=== PATIENT | female | born 1995 | race Caucasian/White ===

== ENCOUNTER 2018-09-04 22:38 | Emergency (ER) | payer BC ==
[~2018-09-04] VITALS: Ht 160 cm; Wt 56.8 kg
[~2018-09-04 22:38] MED LIST: ANTIBIOTIC; BIRTHCONTROL; CEFTIN500 MG PO; NO HOME MEDICATIONS; PYRIDIUM200 M1 PO; TRINESSA1 TAB PO; VIGAMOX 0.5% 3 M3 ML OU; ZOFRAN 4MG T4 MG/TAB PO
[2018-09-04 23:17] LABS: BASO % 0.6 % (0.0-2.0); EOS # 0.1 (0.0-0.7); EOS % 1.4 % (0-4.0); GRAN # 4.7 (1.4-6.5); HEMOGLOBIN 11.1 g/dl (12.5-16.0); LYMPH # 1.4 (1.2-3.4); MEAN CELL VOLUME 85 fl (80.0-100.0); MEAN CORPUSCULAR HEMOGLOBIN 29 pg (27.0-31.0); MEAN CORPUSCULAR HGB CONC 33 g/dl (33.0-37.0); MEAN PLATELET VOLUME 10.1 fl (7.4-10.4); MONO # 0.9 (0.1-0.6); MONO % 12.6 % (1.7-9.3); PLATELET COUNT 200 K/mm3 (130-400); RED BLOOD COUNT 3.89 M/mm3 (4.10-5.30); REDCELL DISTRIBUTION WIDTH-CV 13.8 % (11.5-14.5)
[2018-09-04 23:18] LABS: HEMATOCRIT 33.2 % (37.0-47.0)
[2018-09-04 23:27] LABS: ALBUMIN 3.6 gm/dL (3.5-5.0); BILIRUBIN,TOTAL 0.9 mg/dL (0.0-1.0); CALCIUM 8.8 mg/dL (8.4-10.2); CREATININE, serum 0.55 mg/dL (0.52-1.25); POTASSIUM 3.1 mmol/L (3.4-5.0); TOTAL PROTEIN 6.5 gm/dL (6.4-8.2)
[2018-09-04 23:42] LABS: COLLECTION METHOD CLEAN CATCH
[2018-09-04 23:52] LABS: MUCOUS Present /lpf; PH 5 (5-8); SQUAMOUS EPITHELIAL 0-2 /hpf; URINE APPEARANCE Clear; URINE BACTERIA Rare /hpf; URINE BILIRUBIN Negative (NEGATIVE); URINE BLOOD Negative (NEGATIVE); URINE COLOR Yellow; URINE GLUCOSE Negative (NEGATIVE); URINE KETONE Negative (NEGATIVE); URINE LEUKOCYTE ESTERASE Trace (NEGATIVE); URINE NITRATE Negative (NEGATIVE); URINE PROTEIN(semi-quant) Negative (NEGATIVE); URINE RBC 0-2 /hpf
[2018-09-05 02:21] VITALS: BP 114/59; PULSE 104; TEMP 99.5
== END 2018-09-05 02:25 | disposition home or self-care (01) ==
LOC: COL.ER 22:38
PROVIDERS: Emergency Medicine
DX: E87.6 Hypokalemia (principal); R10.9 Unspecified abdominal pain; Z98.890 Other specified postprocedural states; Z87.59 Personal history of other complications of pregnancy, childbirth and the puerperium
CPT/HCPCS: J7030

== ENCOUNTER 2020-04-02 06:05 | Inpatient (IN) | payer OTHER, MEDICAID ==
[2020-04-02] VITALS (12 sets, daily range): BP systolic 116–131; BP diastolic 59–78; PULSE 78–107; TEMP 98–98.9
[~2020-04-02] VITALS: Ht 160 cm; Wt 65.9 kg
--- NOTE | 2020-04-02 06:10 | NUR ---
PATIENT TO LR 4 AT 0610. PATIENT COMPLAINS OF CONTRACTIONS, LEAKING OF FLUID, BUT NO BLEEDING,CHANGED INTO GOWN SVE PREFORMED. PATIENT SCREMING THROUGH CONTRACTIONS. ON EFM. IV STARTED. OSCAR CALLED DR PRINGLE TO COME TO LABOR AND DELIVERY. PATIENT STATES SHE NEEDS TO PUSH, PATIENT LAYING ON LEFT SIDE BREATHING AND YELLING THROUGH CONTRACTIONS. PEN G INFUSED AT THIS TIME WELL LACTATED RINGERS. DR PRINGLE HERE AT 0629- PATIENT COMPLETE, PATIENT BEGAN PUSHING. DR PRINGLE RUPTURED FOREBAG. HEART RATE RANING FROM 110-80S WHILE PUSHING. BY DR PRINGLE AT 0641. TO MOTHERS CHEST IN CARE OF NICOLASA Moise RN. DOCTOR CUT CORD. SKIN TO SKIN. PLACENTA SPON DELIVERED. OXYTOCIN AT 333 MLS/ HR. FUNDAL MASSAGE PROVIDED. BILATERAL LABIAL REPAIRED BY DR PRINGLE. ICE PACK TO PERINEUM. CORD BLOOD OBTAINED. RECOVERY STARTED AT 0700
[2020-04-02 06:59] LABS: BASO # 0.1 (0.0-0.2); BASO % 0.5 % (0.0-2.0); EOS # 0.1 (0.0-0.7); EOS % 0.6 % (0-4.0); GRAN # 8.4 (1.4-6.5); GRAN % 67.5 % (42.2-75.2); HEMATOCRIT 37.1 % (37.0-47.0); HEMOGLOBIN 11.9 g/dl (12.5-16.0); LYMPH % 24.1 % (20.0-51.0); MEAN CELL VOLUME 78 fl (80.0-100.0); MEAN CORPUSCULAR HEMOGLOBIN 25 pg (27.0-31.0); MEAN CORPUSCULAR HGB CONC 32 g/dl (33.0-37.0); MEAN PLATELET VOLUME 10.3 fl (7.4-10.4); MONO # 0.9 (0.1-0.6); MONO % 6.9 % (1.7-9.3); PLATELET COUNT 296 K/mm3 (130-400); RED BLOOD COUNT 4.77 M/mm3 (4.10-5.30); REDCELL DISTRIBUTION WIDTH-CV 15.4 % (11.5-14.5)
[2020-04-02] MEDS ORDERED: AMOXICILLIN 50500 MG PO (07:34)
[2020-04-03 01:30] VITALS: BP 127/67; PULSE 85; TEMP 97.9
[2020-04-03 09:00] VITALS: BP 117/78; PULSE 80; TEMP 98
[2020-04-03] MEDS ORDERED: IBU600 MG PO (10:19)
[2020-04-03 16:14] VITALS: BP 118/76; PULSE 84; TEMP 98.1
[2020-04-03 19:30] VITALS: BP 116/75; PULSE 85; TEMP 98.5
--- NOTE | 2020-04-03 20:28 | NUR ---
DISCHARGE TEACHING COMPLETE WITH PT AND
[2020-04-04 07:40] VITALS: BP 118/78; PULSE 76; TEMP 98.1
== END 2020-04-04 11:48 | disposition home or self-care (01) | DRG 807 ==
LOC: LDR 06:05 → OB 06:23
PROVIDERS: Obstetrics & Gynecology; ADMIT Obstetrics & Gynecology
PROC: 10E0XZZ Delivery of Products of Conception, External Approach (ICD-10-PCS; principal; 2020-04-02)
PROC: 0UQMXZZ Repair Vulva, External Approach (ICD-10-PCS; 2020-04-02)
DX: O99.824 Streptococcus B carrier state complicating childbirth (principal); Z37.0 Single live birth; O70.0 First degree perineal laceration during delivery; O71.82 Other specified trauma to perineum and vulva; Z3A.39 39 weeks gestation of pregnancy
CPT/HCPCS: J2540; J2590; J7120

== ENCOUNTER 2021-07-15 20:10 | Emergency (ER) | payer MEDICAID ==
[~2021-07-15] VITALS: Ht 157.5 cm; Wt 65.9 kg
[~2021-07-15 20:10] MED LIST changes: +AMOXICILLIN 50500 MG PO; +IBU600 MG PO
[2021-07-15 20:20] VITALS: BP 108/71; TEMP 102.6
[2021-07-15 20:51] LABS: COLLECTION METHOD CLEAN CATCH
[2021-07-15 21:04] LABS: BUDDING YEAST Present /hpf; PH 9 (5-8); URINE APPEARANCE Cloudy; URINE BACTERIA None Seen /hpf; URINE BILIRUBIN Negative (NEGATIVE); URINE BLOOD Negative (NEGATIVE); URINE COLOR Yellow; URINE GLUCOSE Negative (NEGATIVE); URINE KETONE Negative (NEGATIVE); URINE LEUKOCYTE ESTERASE Negative (NEGATIVE); URINE NITRATE Negative (NEGATIVE); URINE PROTEIN(semi-quant) Negative (NEGATIVE); URINE UROBILINOGEN Negative (NEGATIVE)
[2021-07-15 21:05] LABS: BASO % 0.4 % (0.0-2.0); EOS % 0.4 % (0-4.0); GRAN # 1.5 (1.4-6.5); LYMPH # 0.7 (1.2-3.4); LYMPH % 26.5 % (20.0-51.0); MEAN CELL VOLUME 83 fl (80.0-100.0); MEAN CORPUSCULAR HEMOGLOBIN 28 pg (27.0-31.0); MEAN CORPUSCULAR HGB CONC 33 g/dl (33.0-37.0); MEAN PLATELET VOLUME 10.6 fl (7.4-10.4); MONO # 0.5 (0.1-0.6); MONO % 18.3 % (1.7-9.3); PLATELET COUNT 197 K/mm3 (130-400); RED BLOOD COUNT 4.72 M/mm3 (4.10-5.30); REDCELL DISTRIBUTION WIDTH-CV 14.6 % (11.5-14.5)
[2021-07-15 21:19] LABS: ALBUMIN 4.4 gm/dL (3.5-5.0); BILIRUBIN,TOTAL 0.5 mg/dL (0.0-1.0); CALCIUM 9.1 mg/dL (8.4-10.2); CREATININE, serum 0.75 (0.52-1.25); POTASSIUM 3.9 mmol/L (3.4-5.0); TOTAL PROTEIN 7.5 gm/dL (6.4-8.2)
[2021-07-15] MEDS ORDERED: ZOFRAN ODT4 MG PO (22:04)
[2021-07-15 22:30] VITALS: PULSE 117
== END 2021-07-15 22:54 | disposition home or self-care (01) ==
LOC: COL.ER 20:10
PROVIDERS: Personal Emergency Response Attendant
DX: U07.1 COVID-19 (principal)
CPT/HCPCS: J1885; J2405; J7030

== ENCOUNTER 2022-05-22 22:07 | Emergency (ER) | payer MEDICAID ==
[~2022-05-22] VITALS: Ht 170.2 cm; Wt 59.1 kg
[~2022-05-22 22:07] MED LIST changes: +AMOXICILLIN 8751 TAB PO; +ZOFRAN ODT4 MG PO
[2022-05-22 22:17] VITALS: TEMP 98.7
[2022-05-22 23:11] LABS: BASO # 0.1 K/mm3 (0.0-0.2); BASO % 0.4 % (0.0-2.0); EOS # 0.1 K/mm3 (0.0-0.7); EOS % 0.5 % (0.0-4.0); GRAN # 12.3 K/mm3 (1.4-6.5); GRAN % 72.4 % (42.2-75.2); HEMATOCRIT 41.2 % (37.0-47.0); HEMOGLOBIN 13.8 g/dl (12.5-16.0); LYMPH # 3.2 K/mm3 (1.2-3.4); LYMPH % 18.7 % (20.0-51.0); MEAN CELL VOLUME 87 fl (80.0-100.0); MEAN CORPUSCULAR HEMOGLOBIN 29 pg (27-31); MEAN CORPUSCULAR HGB CONC 34 g/dl (33.0-37.0); MEAN PLATELET VOLUME 10.1 fl (7.4-10.4); MONO # 1.3 K/mm3 (0.1-0.6); MONO % 7.7 % (1.7-9.3); PLATELET COUNT 270 K/mm3 (130-400); RED BLOOD COUNT 4.74 M/mm3 (4.10-5.30); REDCELL DISTRIBUTION WIDTH-CV 13.5 % (11.5-14.5)
[2022-05-22 23:29] LABS: ALBUMIN 4.1 gm/dL (3.5-5.0); BILIRUBIN,TOTAL 1.7 mg/dL (0.2-1.2); C-REACTIVE PROTEIN 7.59 mg/dL (0.00-0.50); CALCIUM 9.6 mg/dL (8.4-10.2); CREATININE, serum 0.71 mg/dL (0.57-1.11)
[2022-05-23 03:10] VITALS: BP 144/78; PULSE 76
== END 2022-05-23 03:10 | disposition short-term general hospital (02) ==
LOC: COL.ER 22:07
PROVIDERS: Nurse Practitioner
DX: K04.7 Periapical abscess without sinus (principal); L03.211 Cellulitis of face; Z28.310 Unvaccinated for COVID-19
CPT/HCPCS: J1170; J2405; J7030; Q9967